=== PATIENT | female | born 1995 ===

== ENCOUNTER → 2025-08-11 | Outpatient (CLI) | payer OTHER ==
[2025-08-11 20:24] LABS: CHOL/HDL RATIO 5.8; Cholesterol 173 mg/dL (50-200); HDL Cholesterol 30 mg/dL (>39); LDL/HDL RATIO 2.6; Low Density Lipoprotein Chol 77 mg/dL (0-110); Triglycerides 329 mg/dL (30-140); Very Low Density Lipoprot Chol 65 mg/dL (6-28)
== END | disposition home or self-care (01) ==
LOC: LAB SHORT 10:57 → LAB 10:57
PROVIDERS: Nurse Practitioner Family
DX: E78.49 Other hyperlipidemia (principal)
CPT/HCPCS: 80061